=== PATIENT | male | born 1955 | race Caucasian/White ===

== ENCOUNTER 2019-02-23 07:45 | Observation (INO) | payer OTHER ==
[2019-02-23 07:54] VITALS: BMI 27.3
--- NOTE | 2019-02-23 08:29 | PDOC ---
History of Present Illness - General Chief Complaint: Lightheaded Stated Complaint: Lightheadedness Time Seen by Provider: 02/23/19 07:59 History Source: Patient Exam Limitations: No Limitations - History of Present Illness Initial Comments: 02/23/19 08:26 63 y/o M with PMHx of Erythrocytosis, HTN, HLD, GERD presents with lightheadedness. Patient has had lightheadness for a few weeks for which he has visited his PCP (Dr. Alves) and Matte Cutter (Dr. Fernandez). His PCP has adjusted his HTN regimen and patient was started on Eprosartan 300mg (Previously on ACEi and had coughing, On amlodipine had LE Edema) however he has continued to feel lightheadedness. Patient woke this AM in his usual state of health; He entered his buildings elevator without symptoms however when he began to walk out of the elevator, he became extremely lightheadedness accompanied by feelings of passing out and palpitations. No associated chest pain, nausea, vomiting, diarrhea, constipation, headache or blurry vission. His recent sx's are accompanied by fatigue and SOB that are more sever in the morning. Additionally, patient endorses increased Anxiety over the past few weeks related to current illness. Patient was scheduled for Echo and Stress test tmrw (02/24/19). PMHx: Erythrocytosis (managed by Dr. 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 Past History - Travel Traveled outside of the country in the last 30 days: No Close contact w/someone who was outside of country & ill: No - Past Medical History Allergies/Adverse Reactions: Allergies Allergy/AdvReac Type Severity Reaction Status Date / Time meperidine HCl [From Demerol] Allergy Severe Nausea Verified 02/23/19 07:53 Home Medications: Ambulatory Orders [place]-3 Fatty Acids [Fish Oil] 300 mg PO DAILY 07/26/14 Famotidine [Pepcid] 20 mg PO DAILY 04/23/16 Guar Gum [Benefiber] 1 each PO DAILY 04/23/16 Magnesium Carb/Aluminum Hydrox [Gaviscon Es Tablet Chew] 1 each PO DAILY Irbesartan [Avapro] 300 mg PO DAILY 02/23/19 Anemia: No Asthma: No Cancer: No Cardiac Disorders: No CVA: No COPD: No CHF: No Dementia: No Diabetes: No GI Disorders: Yes (GERD,HEMORRHOIDS,COLON POLYP, HH, DIVERTICULOSIS, RECTAL BLEEDING) Disorders: No HTN: Yes Hypercholesterolemia: Yes Liver Disease: Yes (NALD) Seizures: No Thyroid Disease: No - Surgical History Abdominal Surgery: Yes (INGUINAL HERNIA REPAIR) Appendectomy: Yes (PERFORATED) Cardiac Surgery: Yes (CARDIAC CATH - NORMAL) Cholecystectomy: No Lung Surgery: No Neurologic Surgery: No Orthopedic Surgery: Yes (RIGHT KNEE SURGERY) - Suicide/Smoking/Psychosocial Hx Smoking History: Never smoked Have you smoked in the past 12 months: No Information on smoking cessation initiated: No Hx Alcohol Use: No Drug/Substance Use Hx: No Substance Use Type: None Hx Substance Use Treatment: No Review of Systems - Review of Systems Able to Perform ROS?: Yes Is the patient limited Mexican proficient: No Constitutional: No: Chills, Fever, Weakness Respiratory: Yes: Shortness of Breath Cardiac (ROS): Yes: Lightheadedness, Palpitations. No: Chest Pain, Edema ABD/GI: No: Constipated, Diarrhea, Nausea, Poor Appetite, Vomiting : No: Dysuria, Hematuria Neurological: No: Headache, Numbness, Tingling, Weakness Psychiatric: Yes: Anxiety *Physical Exam - Vital Signs Last Vital Signs Temp Pulse Resp BP Pulse Ox 98.5 F 82 17 170/91 98 02/23/19 07:51 02/23/19 08:23 02/23/19 07:51 02/23/19 08:23 02/23/19 07:51 - Physical Exam General Appearance: Yes: Appropriately Dressed HEENT: positive: EOMI, CURT. negative: Pharyngeal Erythema, Tonsillar Exudate Neck: positive: Supple Respiratory/Chest: positive: Normal Breath Sounds Cardiovascular: positive: Regular Rhythm, Regular Rate, S1, S2. negative: Edema , JVD, Murmur Gastrointestinal/Abdominal: positive: Normal Bowel Sounds, Soft, Hernia (Ventral ). 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 Concern for presyncope; DDx includes orthostatics, metabolic derraingements, Arrhythmia, infectious source. EKG: Reveals NSR Will check CBC, CMP, Mag, Phos, Trop, CXR Give 1L Bolus NS Will reassess 02/23/19 10:21 Laboratory Last Values WBC 6.5 K/mm3 (4.0-10.0) 02/23/19 08:50 RBC 5.37 M/mm3 (4.00-5.60) 02/23/19 08:50 Hgb 16.6 GM/dL (11.7-16.9) 02/23/19 08:50 Hct 48.6 % (35.4-49) 02/23/19 08:50 MCV 90.4 fl (80-96) 02/23/19 08:50 MCH 31.0 pg (25.7-33.7) 02/23/19 08:50 MCHC 34.3 g/dl (32.0-35.9) 02/23/19 08:50 RDW 12.9 % (11.9-15.9) 02/23/19 08:50 MPV 7.1 fl (7.5-11.1) L 02/23/19 08:50 Absolute Neuts (auto) 4.7 K/mm3 (1.5-8.0) 02/23/19 08:50 Neutrophils % 72.4 % (42.8-82.8) 02/23/19 08:50 Lymphocytes % 18.1 % (8-40) 02/23/19 08:50 Monocytes % 8.7 % (3.8-10.2) 02/23/19 08:50 Eosinophils % 0.5 % (0-4.5) 02/23/19 08:50 Basophils % 0.3 % (0-2.0) 02/23/19 08:50 Nucleated RBC % 0 % (0-0) 02/23/19 08:50 Sodium 139 mmol/L (136-145) 02/23/19 08:50 Potassium 4.2 mmol/L (3.5-5.1) 02/23/19 08:50 Chloride 108 mmol/L (98-107) H 02/23/19 08:50 Carbon Dioxide 26 mmol/L (21-32) 02/23/19 08:50 Anion Gap 6 MMOL/L (8-16) L 02/23/19 08:50 BUN 12.8 mg/dL (7-18) 02/23/19 08:50 Creatinine 0.9 mg/dL (0.55-1.3) 02/23/19 08:50 Est GFR (CKD-EPI)AfAm 103.51 02/23/19 08:50 Est GFR (CKD-EPI)NonAf 89.31 02/23/19 08:50 Random Glucose 149 mg/dL (74-106) H 02/23/19 08:50 Calcium 9.3 mg/dL (8.5-10.1) 02/23/19 08:50 Phosphorus 3.0 mg/dL (2.5-4.9) 02/23/19 08:50 Magnesium 2.4 mg/dL (1.8-2.4) 02/23/19 08:50 Total Bilirubin 1.0 mg/dL (0.2-1) 02/23/19 08:50 AST 24 U/L (15-37) 02/23/19 08:50 ALT 48 U/L (13-61) 02/23/19 08:50 Alkaline Phosphatase 126 U/L (45-117) H 02/23/19 08:50 Creatine Kinase 112 U/L (26-308) 02/23/19 08:50 Troponin I < 0.02 ng/ml (0.00-0.05) 02/23/19 08:50 Total Protein 7.6 g/dl (6.4-8.2) 02/23/19 08:50 Albumin 4.4 g/dl (3.4-5.0) 02/23/19 08:50 CXR: Single view of the chest has been submitted. There is a weak inspiration with normal heart, unfolded aorta normal carol. This is a minimal central crowding and minimal platelike atelectasis or scarring at the left base. The left base changes were not present on 04/18/2018. Correlation and follow-up recommended. Labwork noted above does not reveal metabolic derrangements or suggest infectious process. Patient will benefit from observation on tele. Called placed to Dr. Sima Crowder for observation admission. 02/23/19 10:[address] Sima crowder for observation. Will check CT Head. *DC/Admit/Observation/Transfer Diagnosis at time of Disposition: Pre-syncope - Discharge Dispostion Condition at time of disposition: Guarded Decision to Admit order: Yes - Referrals Referrals: Long Knox MD [Primary Care Provider] - - Patient Instructions - Post Discharge Activity
[2019-02-23] MEDS ORDERED: SODIUM CHLORIDE 1,000 ML IV STA (08:41)
[2019-02-23 09:07] LABS: BASO % 0.3 % (0-2.0); EOS % 0.5 % (0-4.5); HEMATOCRIT 48.6 % (35.4-49); HEMOGLOBIN 16.6 GM/dL (11.7-16.9); LYMPH % 18.1 % (8-40); MCHC 34.3 g/dl (32.0-35.9); MEAN CELL VOLUME 90.4 fl (80-96); MEAN PLT VOLUME 7.1 fl (7.5-11.1); MONO % 8.7 % (3.8-10.2); NEUT % 72.4 % (42.8-82.8); PLATELET COUNT 315 K/MM3 (134-434); RBC 5.37 M/mm3 (4.00-5.60); RDW 12.9 % (11.9-15.9); WHITE BLOOD COUNT 6.5 K/mm3 (4.0-10.0)
[2019-02-23 09:35] LABS: ALBUMIN 4.4 g/dl (3.4-5.0); ALK PHOS 126 U/L (45-117); ANION GAP 6 MMOL/L (8-16); BLOOD UREA NITROGEN 12.8 mg/dL (7-18); CALCIUM 9.3 mg/dL (8.5-10.1); CHLORIDE 108 mmol/L (98-107); CO2 26 mmol/L (21-32); CREATININE 0.9 mg/dL (0.55-1.3); GLUCOSE,RANDOM 149 mg/dL (74-106); MAGNESIUM 2.4 mg/dL (1.8-2.4); POTASSIUM 4.2 mmol/L (3.5-5.1); SGOT/AST 24 U/L (15-37); SGPT/ALT 48 U/L (13-61); SODIUM 139 mmol/L (136-145); TOT PROT 7.6 g/dl (6.4-8.2)
[2019-02-23] MEDS ORDERED: ONDANSETRON 4 MG/2 ML VIAL IVPUSH ONE (09:48)
[2019-02-23] MEDS ORDERED: ONDANSETRON 4 MG/2 ML VIAL ONE (09:53)
--- NOTE | 2019-02-23 10:33 | PDOC ---
Documentation entered by Reinaldo Armando SCRIBE, acting as scribe for Wm Aquino MD. Wm Aquino MD: This documentation has been prepared by the Prabha eason Elijah, SCRIBE, under my direction and personally reviewed by me in its entirety. I confirm that the documentation accurately reflects all work, treatment, procedures, and medical decision making performed by me. Attending Attestation - Resident Resident Name: Gladis Crowder - ED Attending Attestation I have performed the following: I have examined & evaluated the patient, The case was reviewed & discussed with the resident, I agree w/resident's findings & plan - HPI HPI: 02/23/19 10:17 CC: Lightheadedness The patient is a 63 year old male, with a significant past medical history of Erythrocytosis, Hypertension, Hyperlipidemia and GERD, who presents to the emergency department extreme lightheadedness that began today. The patient describes that the lightheadedness has been intermittent while changing medications until today in which he had an unbearable episode of the lightheadedness. Denies Shortness of Breath. Denies Chest tightness and Pressure. Denies palpitations. Allergies: Demrol - Physicial Exam PE: 02/23/19 10:17 PE Vitals: Triage vital signs reviewed General Appearance: No acute distress, well nourished, well developed Neck: Supple; No nuchal rigidity Chest Wall: Nontender Cardiac: Regular rate and rhythm, no murmurs, no rubs, no gallops Lungs: Clear to auscultation bilateral, good air movement bilaterally Abdomen: Soft, nondistended, normal bowel sounds, nontender to palpation Extremities: Full range of motion to all extremities, no cyanosis, clubbing, or edema Skin: Warm and dry, no rashes or lesions, no rash, no petechiae Psych: Normal mood, normal affect - Medical Decision Making 02/23/19 16:02 Syncopal episode no evidence of EKG abnormalities troponin negative we'll observe overnight for telemetry monitoring
[2019-02-23] MEDS ORDERED: MECLIZINE HCL 25 MG TABLET (FP) PO PRN (12:34)
[2019-02-23] MEDS ORDERED: ACETAMINOPHEN 325 MG TABLET (FP) PO PRN (12:35)
--- NOTE | 2019-02-23 12:40 | HP ---
Admitting History and Physical - Primary Care Physician PCP: Long Knox - Admission History of Present Illness: Pt seen/ examined chart reviewed case discussed with er Resident Documentation reviewed In summary-- Per Er documentation and I agree-- Pt also gives h/o Tinnitus 63 y/o M with PMHx of Erythrocytosis, HTN, HLD, GERD presents with lightheadedness. Patient has had lightheadness for a few weeks for which he has visited his PCP (Dr. Alves) and Water Project Engineer (Dr. Fernandez). His PCP has adjusted his HTN regimen and patient was started on Eprosartan 300mg (Previously on ACEi and had coughing, On amlodipine had LE Edema) however he has continued to feel lightheadedness. Patient woke this AM in his usual state of health; He entered his buildings elevator without symptoms however when he began to walk out of the elevator, he became extremely lightheadedness accompanied by feelings of passing out and palpitations. No associated chest pain, nausea, vomiting, diarrhea, constipation, headache or blurry vission. His recent sx's are accompanied by fatigue and SOB that are more sever in the morning. Additionally, patient endorses increased Anxiety over the past few weeks related to current illness. Patient was scheduled for Echo and Stress test tmrw (02/24/19). PMHx: Erythrocytosis (managed by Dr. 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 Source: Patient Limitations to Obtaining History: No Limitations - Past Medical History Cardiovascular: Yes: HTN Heme/Onc: Yes: Other (erythrocytosis) - Smoking History Smoking history: Never smoked Have you smoked in the past 12 months: No - Alcohol/Substance Use Hx Alcohol Use: No Home Medications - Allergies Allergies/Adverse Reactions: Allergies Allergy/AdvReac Type Severity Reaction Status Date / Time meperidine HCl [From Demerol] Allergy Severe Nausea Verified 02/23/19 07:53 - Home Medications Home Medications: Ambulatory Orders [place]-3 Fatty Acids [Fish Oil] 300 mg PO DAILY 07/26/14 Famotidine [Pepcid] 20 mg PO DAILY 04/23/16 Guar Gum [Benefiber] 1 each PO DAILY 04/23/16 Magnesium Carb/Aluminum Hydrox [Gaviscon Es Tablet Chew] 1 each PO DAILY Irbesartan [Avapro] 300 mg PO DAILY 02/23/19 Review of Systems - Review of Systems Constitutional: reports: Weakness Eyes: reports: No Symptoms HENT: reports: No Symptoms Neck: reports: No Symptoms Cardiovascular: reports: Palpitations. denies: No Symptoms Respiratory: reports: No Symptoms Gastrointestinal: reports: No Symptoms Neurological: reports: Dizziness Hematology/Lymphatic: reports: No Symptoms (H/o Tinnitus) Psychiatric: reports: No Symptoms Physical Examination Vital Signs: Vital Signs Temperature 98.5 F 02/23/19 07:51 Pulse Rate 66 02/23/19 11:07 Respiratory Rate 16 02/23/19 11:07 Blood Pressure 135/76 02/23/19 11:07 O2 Sat by Pulse Oximetry (%) 98 02/23/19 11:07 Constitutional: Yes: No Distress, Calm Eyes: Yes: Conjunctiva Clear, PERRL HENT: Yes: WNL Neck: Yes: Supple Cardiovascular: Yes: Regular Rate and Rhythm Respiratory: Yes: CTA Bilaterally Gastrointestinal: Yes: Soft Edema: No Neurological: Yes: WNL, Alert, Cran Nerves II-XII Intact Psychiatric: Yes: Alert Labs: CBC, BMP 02/23/19 08:50 02/23/19 08:50 Imaging - Results Chest X-ray: Report Reviewed Cat Scan: Report Reviewed EKG: Report Reviewed Problem List - Problems (1) Hypertension Code(s): I10 - ESSENTIAL (PRIMARY) HYPERTENSION Qualifiers: Hypertension type: essential hypertension Qualified Code(s): I10 - Essential (primary) hypertension (2) Pre-syncope Code(s): R55 - SYNCOPE AND COLLAPSE Assessment/Plan Near syncope Likley vasovagal due to meds ? Neuo - exam benign May be related to Tinnitus-- Pt says has seen ent in past Monitor on tele Cardiology/ Neuro to follow will follow Discussed with pt in detail
[2019-02-23] MEDS ORDERED: PANTOPRAZOLE 40 MG TABLET (FP) PO ONE (12:45)
--- NOTE | 2019-02-23 13:06 | CON.CARD ---
Consult Consult Specialty:: Cardiology Referred by:: Bryan Crowder MD Reason for Consultation:: Near syncope - History of Present Illness Chief Complaint: New syncope History of Present Illness: CC: Lightheadedness The patient is a 63 year old male, with a significant past medical history of Erythrocytosis, Hypertension, Hyperlipidemia and GERD, who presents to the emergency department intermittent lightheadedness worse today in context of changing antihypertensive regimen. Previously stable on vasotec 20 qd, switched to Irbesartan 150 qd due to EMELI-I cough, near syncope increased after uptitrartion to irbesartan 300 qd, amlodipine caused LE edema, he denies dyspnea , chest pain, palpitations, orthopnea, PND or LE edema. He sees Dr. Lawson Fernandez for cardiology, planned for Echo and Stress test tmrw. PMHx: Erythrocytosis (managed by Dr. 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 - History Source History Provided By: Patient Limitations to Obtaining History: No Limitations - Alcohol/Substance Use Hx Alcohol Use: No - Smoking History Smoking history: Never smoked Have you smoked in the past 12 months: No Home Medications - Allergies Allergies/Adverse Reactions: Allergies Allergy/AdvReac Type Severity Reaction Status Date / Time meperidine HCl [From Demerol] Allergy Severe Nausea Verified 02/23/19 07:53 - Home Medications Home Medications: Ambulatory Orders [place]-3 Fatty Acids [Fish Oil] 300 mg PO DAILY 07/26/14 Famotidine [Pepcid] 20 mg PO DAILY 04/23/16 Guar Gum [Benefiber] 1 each PO DAILY 04/23/16 Magnesium Carb/Aluminum Hydrox [Gaviscon Es Tablet Chew] 1 each PO DAILY Irbesartan [Avapro] 300 mg PO DAILY 02/23/19 Review of Systems - Review of Systems Neurological: reports: Dizziness Vital Signs: Vital Signs Temperature 98.5 F 02/23/19 07:51 Pulse Rate 66 02/23/19 11:07 Respiratory Rate 16 02/23/19 11:07 Blood Pressure 135/76 02/23/19 11:07 O2 Sat by Pulse Oximetry (%) 98 02/23/19 11:07 Constitutional: Yes: No Distress, Calm Neck: Yes: Supple Respiratory: Yes: Regular, CTA Bilaterally Gastrointestinal: Yes: Normal Bowel Sounds, Soft Cardiovascular: Yes: Regular Rate and Rhythm JVD: No Carotid Bruit: No Heart Sounds: Yes: S1, S2 Edema: No - Other Data Labs, Other Data: CBC, BMP 02/23/19 08:50 02/23/19 08:50 Troponin, BNP 02/23/19 08:50 Troponin I < 0.02 Troponin, BNP 02/23/19 08:50 Troponin I < 0.02 NSR @ [address]-T changes Problem List - Problems (1) Hypertension Code(s): I10 - ESSENTIAL (PRIMARY) HYPERTENSION Qualifiers: Hypertension type: essential hypertension Qualified Code(s): I10 - Essential (primary) hypertension (2) Pre-syncope Code(s): R55 - SYNCOPE AND COLLAPSE Assessment/Plan 1. Near syncope suspect medication effects since symptoms worsened after uptitration of irbesartan 2. Hypertension 2. Recommend decrease irbesartan 150 qd or equivalent 3. Monitor telemetry overnight 4. Plan for continued CV f/u including echo and stress testing at Dr. Fernandez's office 5. Thank you for consultative opportunity
--- NOTE | 2019-02-23 15:31 | CON.NEURO ---
Consult - Alcohol/Substance Use Hx Alcohol Use: No - Smoking History Smoking history: Never smoked Have you smoked in the past 12 months: No Home Medications - Allergies Allergies/Adverse Reactions: Allergies Allergy/AdvReac Type Severity Reaction Status Date / Time meperidine HCl [From Demerol] Allergy Severe Nausea Verified 02/23/19 07:53 - Home Medications Home Medications: Ambulatory Orders [place]-3 Fatty Acids [Fish Oil] 300 mg PO DAILY 07/26/14 Famotidine [Pepcid] 20 mg PO DAILY 04/23/16 Guar Gum [Benefiber] 1 each PO DAILY 04/23/16 Magnesium Carb/Aluminum Hydrox [Gaviscon Es Tablet Chew] 1 each PO DAILY Irbesartan [Avapro] 300 mg PO DAILY 02/23/19 Physical Exam-Neuro Vital Signs: Vital Signs Temperature 98.4 F 02/23/19 14:00 Pulse Rate 61 02/23/19 14:00 Respiratory Rate 20 02/23/19 14:00 Blood Pressure 132/63 02/23/19 14:00 O2 Sat by Pulse Oximetry (%) 98 02/23/19 11:07 Labs: CBC, BMP 02/23/19 08:50 02/23/19 08:50 Assessment/Plan cc Feeling of dizziness and almost passing out one day HPI 63 year old male history of Erhtyrocytosis, HTN,HLD, GERD. Patient has lightheadeness, no loc. Patient denies any vertigo sensation . He feel there is lightheadedness and dysbalance. Now he is feeling much better. He denies any headhace, fever . He is feeling better today, he denies any trauma, fever or diarrhoea. Patient denies any weakness or numbness. His medication was changed from vasotec to eprosartan 300 mg po once a day. His medication as changed to eprosartan 150 mg once a day . He saw human resources vice president they were considering echo and stress test. 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 Allergies Allergies Allergy/AdvReac Type Severity Reaction Status Date / Time meperidine HCl [From Demerol] Allergy Severe Nausea Verified 02/23/19 07:53 Home Medications: [place]-3 Fatty Acids [Fish Oil] 300 mg PO DAILY 07/26/14 Famotidine [Pepcid] 20 mg PO DAILY 04/23/16 Guar Gum [Benefiber] 1 each PO DAILY 04/23/16 Magnesium Carb/Aluminum Hydrox [Gaviscon Es Tablet Chew] 1 each PO DAILY Irbesartan [Avapro] 300 mg PO DAILY 02/23/19 NEUROLOGICAL EXAMINATION Alert oriented x 3 no neck stiffness, afebrile, there is drop in systolic blood rpessure from 173 to 140 after getting up cn all intact, eomi, pupils reactive no face asymmery motor 5/5 all ext sensation is normal sensation is normal no nystagmus , ftn and hts is normal ct head normal Assessment/Plan 63 year old male history of htn, hld and erythrocytosis and complaining of dizziness and improved. It seems to be vascular in origiin. Unlikley to be cerebellar dysfunction or stroke Plan: would watch him, he has any focal neuro symptoms consider mri - human resources vice president consult appreciated - he is feeling better, supportive care Thanking you so much Gio Watkins MD
[2019-02-23] MEDS: HEPARIN NA (PORCINE) 5,000 UNITS/ML 1ML VIAL SQ SCH (21:08)
[2019-02-24 08:02] LABS: ALBUMIN 3.8 g/dl (3.4-5.0); BILIRUBIN,TOTAL 0.9 mg/dL (0.2-1); CALCIUM 8.4 mg/dL (8.5-10.1); CREATININE 0.9 mg/dL (0.55-1.3); POTASSIUM 4.4 mmol/L (3.5-5.1); TOT PROT 6.5 g/dl (6.4-8.2)
[2019-02-24 08:33] LABS: BASO % 0.1 % (0-2.0); EOS % 1.8 % (0-4.5); HEMATOCRIT 44.2 % (35.4-49); HEMOGLOBIN 15.5 GM/dL (11.7-16.9); LYMPH % 31.4 % (8-40); MCH 32.1 pg (25.7-33.7); MEAN CELL VOLUME 91.6 fl (80-96); MEAN PLT VOLUME 7.7 fl (7.5-11.1); MONO % 9.7 % (3.8-10.2); PLATELET COUNT 284 K/MM3 (134-434); RBC 4.83 M/mm3 (4.00-5.60); RDW 13.5 % (11.9-15.9); WHITE BLOOD COUNT 7.8 K/mm3 (4.0-10.0)
--- NOTE | 2019-02-24 09:00 | PN ---
Progress Note (short form) - Note Progress Note: 63 year old male history of Erhtyrocytosis, HTN,HLD, GERD. Patient has lightheadeness, no loc. Patient denies any vertigo sensation . He feel there is lightheadedness and dysbalance. Now he is feeling much better. He denies any headhace, fever . He is feeling better today, he denies any trauma, fever or diarrhoea. Patient denies any weakness or numbness. His medication was changed from vasotec to eprosartan 300 mg po once a day. His medication as changed to eprosartan 150 mg once a day . He saw receivable manager they were considering echo and stress test. Patient is better but not 100 percent back to normal. NEUROLOGICAL EXAMINATION Alert oriented x 3 no neck stiffness, afebrile, there is drop in systolic blood rpessure from 173 to 140 after getting up cn all intact, eomi, pupils reactive no face asymmery motor 5/5 all ext sensation is normal sensation is normal no nystagmus , ftn and hts is normal ct head normal carotid ultrasound is normal Assessment/Plan 63 year old male history of htn, hld and erythrocytosis and complaining of dizziness and improved. It seems to be vascular in origiin. Unlikley to be cerebellar dysfunction or stroke. He is feeling better, carotid ultrasound is normal Plan: would watch him, he has any focal neuro symptoms consider mri, no need for mri of brain at this miryam - he is feeling better, supportive care Thanking you so much Gio Watkins MD
[2019-02-24] MEDS ORDERED: MAGNESIUM CARB PO SCH (10:00)
[2019-02-24] MEDS ORDERED: RANITIDINE HCL 150 MG TABLET (FP) PO SCH (10:00)
[2019-02-24] MEDS ORDERED: GUAR GUM PO SCH (10:00)
[2019-02-24] MEDS ORDERED: [UNRECOGNIZED DRUG - OTHER] PO SCH (10:00)
[2019-02-24] MEDS ORDERED: PATIENT'S OWN MEDICATION (NON-FORMULARY) (Omega-3 Fatty Acids [Fish Oil] 300 MG) PO SCH (10:00)
[2019-02-24] MEDS ORDERED: LOSARTAN POTASSIUM 50 MG TABLET (FP) PO SCH (10:00)
[2019-02-24] MEDS ORDERED: ALUMINUM HYDROX PO SCH (10:00)
[2019-02-24] MEDS: HEPARIN NA (PORCINE) 5,000 UNITS/ML 1ML VIAL SQ SCH ×2 (10:03→11:04)
[2019-02-24 10:11] VITALS: BP 130/64; PULSE 64; TEMP 97.9
--- NOTE | 2019-02-24 11:57 | DS ---
Physical Examination Vital Signs: Vital Signs Temperature 97.9 F 02/24/19 10:00 Pulse Rate 64 02/24/19 10:00 Respiratory Rate 18 02/24/19 10:00 Blood Pressure 130/64 02/24/19 10:00 O2 Sat by Pulse Oximetry (%) 100 02/24/19 08:17 Constitutional: Yes: No Distress, Calm Cardiovascular: Yes: Regular Rate and Rhythm Respiratory: Yes: CTA Bilaterally Gastrointestinal: Yes: Normal Bowel Sounds, Soft. No: Tenderness Edema: No Labs: CBC, BMP 02/24/19 05:30 02/24/19 05:38 Discharge Summary Reason For Visit: SYNCOPE Current Active Problems Hypertension (Acute) Pre-syncope (Acute) Hospital Course: Admitted for syncope Seen by Cardiology and neurology CT head-- negative carotid doppler negative Tele uneventful Labs noted BP meds decreased Stable for dc home follow up with Giving Officer for stress testing Condition: Improved - Instructions Disposition: HOME - Home Medications Comprehensive Discharge Medication List: Ambulatory Orders [place]-3 Fatty Acids [Fish Oil] 300 mg PO DAILY 07/26/14 Famotidine [Pepcid] 20 mg PO DAILY 04/23/16 Guar Gum [Benefiber] 1 each PO DAILY 04/23/16 Magnesium Carb/Aluminum Hydrox [Gaviscon Es Tablet Chew] 1 each PO DAILY Irbesartan 150 mg PO DAILY #90 tablet 02/24/19
--- NOTE | 2019-02-24 12:22 | PN ---
Progress Note, Physician Chief Complaint: Events noted Not in distress History of Present Illness: Patient was seen and examined. Awake and alert. Chart was reviewed Denies chest pain, SOB or palpitations Denies dizziness - Current Medication List Current Medications: Active Medications Acetaminophen (Tylenol -) 650 mg PO Q4H PRN PRN Reason: PAIN LEVEL 1-5 Last Admin: 02/23/19 21:11 Dose: 650 mg Heparin Sodium (Porcine) (Heparin -) 5,000 unit SQ BID [facility] Last Admin: 02/24/19 11:04 Dose: Not Given Losartan Potassium (Cozaar -) 100 mg PO DAILY [facility] Last Admin: 02/24/19 10:03 Dose: 100 mg Meclizine HCl (Antivert -) 25 mg PO TID PRN PRN Reason: VERTIGO Non-Formulary Medication (Guar Gum [Benefiber]) 1 each PO DAILY [facility] Non-Formulary Medication (Magnesium Carb/Aluminum Hydrox [Gaviscon Es Tablet Chew]) 1 each PO DAILY [facility] Non-Formulary Medication ([place]-3 Fatty Acids [Fish Oil]) 300 mg PO DAILY [facility] Ranitidine HCl (Zantac -) 150 mg PO DAILY [facility] Last Admin: 02/24/19 10:03 Dose: 150 mg - Objective Vital Signs: Vital Signs Temperature 97.9 F 02/24/19 10:00 Pulse Rate 64 02/24/19 10:00 Respiratory Rate 18 02/24/19 10:00 Blood Pressure 130/64 02/24/19 10:00 O2 Sat by Pulse Oximetry (%) 100 02/24/19 08:17 Eyes: Yes: PERRL HENT: Yes: Atraumatic Neck: Yes: Supple Cardiovascular: Yes: Regular Rate and Rhythm, S1, S2 Respiratory: Yes: CTA Bilaterally Gastrointestinal: Yes: Normal Bowel Sounds, Soft. No: Tenderness Edema: No Additional Findings/Remarks: - Review of Systems Constitutional: denies: Chills, Fever Cardiovascular: denies: Chest Pain, Palpitations, Shortness of Breath Respiratory: denies: Cough, Hemoptysis, Orthopnea, PND, SOB, SOB on Exertion Gastrointestinal: denies: Abdominal Pain, Constipation, Diarrhea, Melena, Nausea , Rectal Bleeding, Vomiting Genitourinary: denies: Dysuria, Hematuria Musculoskeletal: denies: Back Pain, Joint Pain Neurological: reports: Dizziness, Syncope. denies: Confusion, Headache, Numbness, Seizure, Unsteady Gait Labs: CBC, BMP 02/24/19 05:30 02/24/19 05:38 Problem List - Problems (1) Hypertension Code(s): I10 - ESSENTIAL (PRIMARY) HYPERTENSION Qualifiers: Hypertension type: essential hypertension Qualified Code(s): I10 - Essential (primary) hypertension (2) Pre-syncope Code(s): R55 - SYNCOPE AND COLLAPSE Assessment/Plan 1. Near syncope suspect medication effects since symptoms worsened after uptitration of Irbesartan 2. Hypertension PLAN: 1. Agree with decreasing Irbesartan to 150 mg QD or equivalent 2. Plan for continued further cardiac work up at Dr. Fernandez's office Discharge planning Perez Donovan MD
--- NOTE | 2019-02-24 12:49 | EKG ---
Test Reason : Blood Pressure : / mmHG Vent. Rate : 080 BPM Atrial Rate : 080 BPM P-R Int : 190 ms QRS Dur : 078 ms QT Int : 374 ms P-R-T Axes : 065 012 035 degrees QTc Int : 431 ms NORMAL SINUS RHYTHM NORMAL ECG NO PREVIOUS ECGS AVAILABLE Confirmed by Parker Zamarripa MD ([id number]) on 02/24/2019 12:48:35 PM Referred By: Confirmed By:Parker Zamarripa MD
== END 2019-02-24 13:32 | disposition home or self-care (01) ==
LOC: JER 07:45 → JERBED 10:35 → J4W 11:46
PROVIDERS: ADMIT Internal Medicine; ATTEND Internal Medicine
DX: R55 Syncope and collapse (principal); I10 Essential (primary) hypertension; E78.5 Hyperlipidemia, unspecified; K21.9 Gastro-esophageal reflux disease without esophagitis; D75.1 Secondary polycythemia; K76.89 Other specified diseases of liver; Z87.19 Personal history of other diseases of the digestive system; Z98.61 Coronary angioplasty status; Z98.890 Other specified postprocedural states; Z88.8 Allergy status to other drugs, medicaments and biological substances
CPT/HCPCS: 36415; 70450-TC; 71045-TC-FY; 80053; 82550; 83735; 84100; 84443; 84484; 85025; 93005; 93010; 93880-TC; 99285-25; G0378; J1644; J7030

== ENCOUNTER 2021-05-10 22:58 | Observation (INO) | payer OTHER ==
[2021-05-10 23:24] VITALS: BMI 28.4
[2021-05-11] MEDS ORDERED: ASPIRIN 81 MG CHEWABLE TABLETS PO ONE (00:34)
[2021-05-11] MEDS ORDERED: ASPIRIN 81 MG CHEWABLE TABLETS ONE (01:10)
[2021-05-11] MEDS: SODIUM CHLORIDE 1,000 ML IV SCH (01:34)
[2021-05-11 01:40] LABS: BASO % 0.4 % (0-2.0); EOS % 0.4 % (0-4.5); HEMATOCRIT 47.4 % (35.4-49); HEMOGLOBIN 16.5 GM/dL (11.7-16.9); LYMPH % 19.7 % (8-40); MCH 30.8 pg (25.7-33.7); MCHC 34.9 g/dl (32.0-35.9); MEAN CELL VOLUME 88.2 fl (80-96); MEAN PLT VOLUME 6.5 fl (7.5-11.1); MONO % 9.4 % (3.8-10.2); NEUT % 70.1 % (42.8-82.8); PLATELET COUNT 329 10^3/uL (134-434); RBC 5.37 M/mm3 (4.00-5.60); RDW 12.9 % (11.9-15.9); WHITE BLOOD COUNT 9.3 K/mm3 (4.0-10.0)
[2021-05-11 01:41] LABS: PH,URINE 6.5 (5.0-8.0); URINE APPEARANCE CLEAR; URINE BILIRUBIN NEGATIVE (NEGATIVE); URINE COLOR YELLOW; URINE GLUCOSE (UA) NEGATIVE (NEGATIVE); URINE KETONE NEGATIVE (NEGATIVE); URINE LEUK ESTERASE NEGATIVE (NEGATIVE); URINE NITRITE NEGATIVE (NEGATIVE); URINE PROTEIN NEGATIVE (NEGATIVE); URINE UROBILINOGEN 0.2 mg/dL (0.2-1.0)
[2021-05-11 01:46] LABS: INR 1.06 (0.83-1.09)
[2021-05-11 01:49] LABS: ACTIVATED PTT 29.5 SECONDS (25.2-36.5)
[2021-05-11 01:58] LABS: CHLORIDE 107 mmol/L (98-107); SODIUM 139 mmol/L (136-145)
[2021-05-11 02:01] LABS: ALBUMIN 4.3 g/dl (3.4-5.0); ANION GAP 7 MMOL/L (8-16); BLOOD UREA NITROGEN 12.4 mg/dL (7-18); CALCIUM 9.4 mg/dL (8.5-10.1); CO2 26 mmol/L (21-32); GLUCOSE,RANDOM 139 mg/dL (74-106)
[2021-05-11 02:04] LABS: CHOLESTEROL 135 mg/dL (50-200); SGOT/AST 26 U/L (15-37); SGPT/ALT 46 U/L (13-61); TRIGLYCERIDES 190 mg/dL (0-150)
[2021-05-11 02:05] LABS: LDL CHOLESTEROL (ONLY SJRH) 69 mg/dL (5-100)
[2021-05-11 02:06] LABS: TOT PROT 7.7 g/dl (6.4-8.2)
[2021-05-11 02:07] LABS: ALK PHOS 104 U/L (45-117); HDL CHOLESTEROL 35 mg/dL (40-60)
[2021-05-11 02:18] LABS: BILIRUBIN,TOTAL 0.7 mg/dL (0.2-1)
[2021-05-11 08:02] LABS: HEMATOCRIT 44.7 % (35.4-49); HEMOGLOBIN 15.9 GM/dL (11.7-16.9); MCH 31.5 pg (25.7-33.7); MCHC 35.6 g/dl (32.0-35.9); MEAN CELL VOLUME 88.5 fl (80-96); MEAN PLT VOLUME 6.9 fl (7.5-11.1); PLATELET COUNT 310 10^3/uL (134-434); RBC 5.05 M/mm3 (4.00-5.60); RDW 13.2 % (11.9-15.9)
[2021-05-11 08:14] LABS: ALBUMIN 3.8 g/dl (3.4-5.0); BLOOD UREA NITROGEN 11.8 mg/dL (7-18); CALCIUM 8.7 mg/dL (8.5-10.1)
[2021-05-11 08:18] LABS: CREATININE 0.9 mg/dL (0.55-1.3)
[2021-05-11 08:19] LABS: TOT PROT 6.7 g/dl (6.4-8.2)
[2021-05-11] MEDS: ENOXAPARIN NA (PORCINE) 40 MG/0.4 ML DISP.SYRIN SQ SCH ×2 (11:19→11:57)
[2021-05-11] MEDS: ASPIRIN COATED 81 MG TABLET.EC PO SCH ×2 (11:19→11:57)
[2021-05-11] MEDS ORDERED: FAMOTIDINE 20 MG TABLET PO SCH (14:44)
[2021-05-11] MEDS: CLOTRIMAZOLE 1% CREAM TP SCH (21:04)
[2021-05-11] MEDS ORDERED: ATORVASTATIN CA 40 MG TABLET (FP) PO SCH (22:00)
[2021-05-11] MEDS ORDERED: PATIENT'S OWN MEDICATION (NON-FORMULARY) (Famotidine 40 MG Tablet) PO SCH (22:00)
[2021-05-12] MEDS: SODIUM CHLORIDE 1,000 ML IV SCH (01:18)
[2021-05-12] MEDS: FAMOTIDINE 20 MG TABLET PO SCH ×2 (01:21→10:50)
[2021-05-12 08:21] LABS: MAGNESIUM 2.5 mg/dL (1.8-2.4)
[2021-05-12 08:23] LABS: PHOSPHOROUS 3.2 mg/dL (2.5-4.9)
[2021-05-12] MEDS: CLOTRIMAZOLE 1% CREAM TP SCH (10:50)
[2021-05-12] MEDS: ENOXAPARIN NA (PORCINE) 40 MG/0.4 ML DISP.SYRIN SQ SCH (10:50)
[2021-05-12] MEDS: ASPIRIN COATED 81 MG TABLET.EC PO SCH (10:50)
[2021-05-12 14:12] VITALS: BP 123/70; PULSE 62; TEMP 98.1
== END 2021-05-12 18:28 | disposition home or self-care (01) ==
LOC: JER 22:58 → JERBED 05-11 02:33 → UNDOADMOB 05-11 02:33 → INTOOBSV 05-11 02:33 → JERBED 05-11 11:52 → J4W 05-11 11:52 → JERBED 05-12 10:04
PROVIDERS: ADMIT Internal Medicine
PROC: 3E023GC Introduction of Other Therapeutic Substance into Muscle, Percutaneous Approach (ICD-10-PCS; principal; 2021-05-12)
DX: F41.9 Anxiety disorder, unspecified (principal); I10 Essential (primary) hypertension; E78.5 Hyperlipidemia, unspecified; D75.1 Secondary polycythemia; R21 Rash and other nonspecific skin eruption; L29.9 Pruritus, unspecified; K21.9 Gastro-esophageal reflux disease without esophagitis; Z88.8 Allergy status to other drugs, medicaments and biological substances; Z29.9 Encounter for prophylactic measures, unspecified
CPT/HCPCS: 36415; 70450-TC; 70551-TC; 71045-TC-FY; 80053; 80061; 81003; 82550; 82607; 82746; 83036; 83090; 83735; 84100; 84436; 84443; 84484; 85025; 85027; 85610; 85730; 86780; 93005; 93010; 93306-TC; 93880-TC; 96372; 97116-GP; 97161-GP; 99285-25; C9803; G0378; U0003; U0005